=== PATIENT | male | born 1930 | race Caucasian/White ===

== ENCOUNTER → 2017-08-14 | Outpatient (CLI) | payer MEDICARE ==
[~2017-08-14] MED LIST: ACET325 PO; ASPI325 PO; ASPI81CH PO; ATOR20 PO; CLOP75 PO; GLUC500 PO; GOLDEN SEAL PO; LEVFLO500 PO; Lisinopril2.5 MG PO; METO25 PO; TAMS.4ER PO; Tylenol325 MG PO
[2017-08-14 12:44] LABS: Source, Urine Clean Catch
[2017-08-14 14:58] LABS: Bilirubin, Urine Neg (Neg); Blood, Urine Neg (Neg); Glucose Qualitative, Urine Neg (Neg); Ketones, Urine Neg (Neg); Leukocyte Esterase, Urine 2+ (Neg); Nitrite, Urine Neg (Neg); Protein, Urine Neg (Neg); Urobilinogen, Urine NORM (Normal)
[2017-08-14 15:03] LABS: Appearance, Urine Clear (Clear); Color, Urine Yellow (P-Yellow)
[2017-08-14 15:04] LABS: Calcium Oxalate Crystals Mod /hpf
[2017-08-14 15:05] LABS: Bacteria Few /hpf; Squamous Epithelial Cells Few /hpf (Few)
[2017-08-14 15:19] LABS: Microalb/Creat Ratio UR, Rand 8.755 mg/g (0.000-30.000); Microalbumin, Random Urine 9.28 mg/L (0.000-20.000)
== END ==
LOC: LAB SHORT 11:30 → LAB 11:30 → LAB FUT 08-13 14:45
PROVIDERS: Internal Medicine
DX: E11.9 Type 2 diabetes mellitus without complications (principal); E83.51 Hypocalcemia; R32 Unspecified urinary incontinence; R10.9 Unspecified abdominal pain
CPT/HCPCS: 81001; 82043; 82570; 87086

== ENCOUNTER → 2017-11-22 | Outpatient (CLI) | payer MEDICARE ==
[~2017-11-22] MED LIST changes: -ASPI81CH PO; -LEVFLO500 PO; -TAMS.4ER PO; -Tylenol325 MG PO
[2017-11-22 11:43] LABS: Bilirubin, Urine Neg (Neg); Blood, Urine Neg (Neg); Glucose Qualitative, Urine Neg (Neg); Ketones, Urine Neg (Neg); Leukocyte Esterase, Urine 1+ (Neg); Nitrite, Urine Neg (Neg); Protein, Urine Neg (Neg); Urobilinogen, Urine NORM (Normal)
[2017-11-22 11:55] LABS: Appearance, Urine Clear (Clear); Color, Urine Yellow (P-Yellow)
[2017-11-22 11:58] LABS: Bacteria Rare /hpf; Red Blood Cells, Urine 0-2 /hpf (0-2); Squamous Epithelial Cells Not Seen /hpf (Few)
[2017-11-22 12:11] LABS: Microalbumin, Random Urine 12.1 mg/L (0.000-20.000)
[2017-11-23 11:57] LABS: Creatinine, Urine Random 90.1 mg/dL (27.00-270.00)
== END ==
LOC: OLS 09:43 → LAB SHORT 09:43
PROVIDERS: Internal Medicine
DX: E78.5 Hyperlipidemia, unspecified (principal); E11.8 Type 2 diabetes mellitus with unspecified complications; I10 Essential (primary) hypertension; R97.20 Elevated prostate specific antigen [PSA]; Z79.899 Other long term (current) drug therapy
CPT/HCPCS: 81001; 82043; 82570; 87086

== ENCOUNTER 2018-01-31 23:05 | Emergency (ER) | payer MEDICARE ==
[~2018-01-31] VITALS: Ht 182.9 cm; Wt 83.5 kg
[~2018-01-31 23:05] MED LIST changes: +ASPI81CH PO; +LEVFLO500 PO; +TAMS.4ER PO; +Tylenol325 MG PO
[2018-02-01 00:25] LABS: Source, Urine Catheter
[2018-02-01 00:28] LABS: Bilirubin, Urine Neg (Neg); Blood, Urine 4+ (Neg); Glucose Qualitative, Urine Neg (Neg); Ketones, Urine Neg (Neg); Leukocyte Esterase, Urine Neg (Neg); Nitrite, Urine Neg (Neg); Protein, Urine Neg (Neg); Specific Gravity, Urine 1.015 (1.003-1.022); Urobilinogen, Urine NORM (Normal)
[2018-02-01 00:34] LABS: Appearance, Urine Clear (Clear); Color, Urine Yellow (P-Yellow)
[2018-02-01 00:35] LABS: Amorphous Light (0-Heavy); Bacteria Not Seen /hpf; Squamous Epithelial Cells Not Seen /hpf (Few); White Blood Cells, Urine Rare /hpf (0-5)
== END 2018-02-01 01:00 | disposition home or self-care (01) ==
LOC: ER 23:05
PROVIDERS: Emergency Medicine
DX: T83.091A Other mechanical complication of indwelling urethral catheter, initial encounter (principal); R31.9 Hematuria, unspecified; Z88.0 Allergy status to penicillin; Z79.82 Long term (current) use of aspirin; Z79.899 Other long term (current) drug therapy; I25.2 Old myocardial infarction
CPT/HCPCS: 51702; 81001; 99283

== ENCOUNTER 2018-02-03 04:58 | Emergency (ER) | payer MEDICARE ==
[~2018-02-03] VITALS: Ht 182.9 cm; Wt 88.0 kg
[2018-02-03 06:15] LABS: Source, Urine Catheter
[2018-02-03 06:18] LABS: Bilirubin, Urine Neg (Neg); Blood, Urine 5+ (Neg); Glucose Qualitative, Urine Neg (Neg); Ketones, Urine Neg (Neg); Leukocyte Esterase, Urine 2+ (Neg); Nitrite, Urine Neg (Neg); Protein, Urine Neg (Neg); Urobilinogen, Urine NORM (Normal)
[2018-02-03 06:46] LABS: Appearance, Urine Hazy (Clear); Color, Urine Yellow (P-Yellow)
[2018-02-03 06:50] LABS: Bacteria Many /hpf; Squamous Epithelial Cells Few /hpf (Few); Yeast/Fungi Urine Many /hpf
== END 2018-02-03 06:15 | disposition home or self-care (01) ==
LOC: ER 04:58
PROVIDERS: Emergency Medicine
DX: T83.091A Other mechanical complication of indwelling urethral catheter, initial encounter (principal); R33.9 Retention of urine, unspecified; I25.2 Old myocardial infarction; Z88.0 Allergy status to penicillin; Z79.82 Long term (current) use of aspirin; Z79.899 Other long term (current) drug therapy
CPT/HCPCS: 51700; 81001; 87086; 99283